=== PATIENT | female | born 2000 | race Caucasian/White ===

== ENCOUNTER 2024-06-28 08:52 | Outpatient (CLI) | payer OTHER, SELFPAY | END 2024-06-28 08:53 | disposition home or self-care (01) | PROVIDERS: PCP Family Medicine; Referring Provider Family Medicine; Visit Provider Physician Assistant | DX: R35.0 Frequency of micturition (principal) | CPT/HCPCS: 87086 ==

== ENCOUNTER 2024-07-26 15:26 | Outpatient (CLI) | payer OTHER, SELFPAY | END 2024-07-26 15:27 | disposition home or self-care (01) | PROVIDERS: PCP Family Medicine; Visit Provider Obstetrics & Gynecology | DX: D13.4 Benign neoplasm of liver (principal); K76.0 Fatty (change of) liver, not elsewhere classified | CPT/HCPCS: 84450; 84460 ==

== ENCOUNTER 2024-10-18 07:12 | Outpatient (CLI) | payer OTHER, SELFPAY ==
--- NOTE | 2024-10-18 07:15 | CRLHL7_ITS ---
For Patients: As a result of the Century Cures Act, medical imaging exams and procedure reports are released immediately into your electronic medical record. You may view this report before your referring provider. If you have questions, please contact your health care provider. OB ULTRASOUND LUCY by US: 01/09/2025. GA: 28 w, 1 d. Single. Comparison: 08/22/2024 x 2. INDICATION: Growth (Congenital pulmonary valve stenosis). TECHNIQUE: Real time bell scale imaging of the fetus was performed.Transabdominal. CERVIX: Not visualized. POSITIONING: Vertex. AMNIOTIC FLUID: 5.8 cm. SDP (N: greater than 2 x 1 cm) PLACENTA: Technique: Transabdominal. PLACENTA POSITION: Posterior. DOPPLER: heart rate: 144 bpm. BIOMETRY: BPD: 7.6 cm. 30 w, 2 d, 94 percent. HC: 27.6 cm. 30 w, 1 d, 81 percent. AC: 26.0 cm. 30 w, 1 d, 92 percent. FL: 5.4 cm. 28 w, 4 d, 50 percent. FL/AC ratio: 20.8 percent. HC/AC ratio: 1.1. EFW: 1435 g. Weight: 3 lbs, 3 oz. age by this US: 29 w, 6 d. LUCY by this US: 12/28/2024. Percentile by LUCY: 90.1 percent. IMPRESSION: 1. Sonographic gestational age 29 weeks 6 days and sonographic due date 12/28/2024. Sonographic age 12 days ahead of the clinical age. 2. Estimated weight 90th percentile. Abdominal circumference 92nd percentile. Cesar Serrano M.D. Diagnostic Radiologist [employer] [email or web address] SEMAJ/tom JR/Dictated by: Cesar Serrano MD @ 10/18/2024 8:33:00 AM (Electronically Signed)
--- OUTSIDE RECORDS SUMMARY | 2024-10-19 00:31 | XMS_ITS | Clinical Summary ---
Author Organization [employer] [facility] [employer] [facility] Address [address] [place] [id number] Care Team Providers Care Engineer Station Mainline Name Role Phone Sandhya Aleman MD Primary Care Provi alex Allergies Active Allergy Reactions Criticality Noted Date Comments Metformin Tachycardia 07/22/2023 Skin issues, tachypnea, Medications loratadine (Claritin) 10 mg tabletIndication s:Seasonal allergic rhinitis, unspecified trigger Take 1 Tablet (10 mg) by mouth once daily. 0 3 Active Blood-Glucose Meter (Freestyle [employer])Indicat ions:PCOS (polycystic ovarian syndrome) Dispense glucose meter, test strips and lancets covered by the patient insurance. Test 2 times per day. 1 Each 4 Active lancets 28 gauge miscIndications: PCOS (polycystic ovarian syndrome) As directed. Test 2 times daily. 100 Each 11 01/29/2024 3:30 PM CDT 4 Active blood sugar diagnostic (Freestyle [employer] Test Strips) stripIndications :PCOS (polycystic ovarian syndrome) Dispense item covered by pt ins. PCOS as diagnosis. Test 2 times daily. 100 Each 11 01/29/2024 3:30 PM CDT 4 Active buPROPion 150 mg Extended-Release tabletIndication s:Depression, major, single episode, moderate (HC) Take 1 Tablet (150 mg) by mouth once daily in the morning. 90 Tablet 3 08/23/2024 1:23 PM CDT 4 Active 25/iron fum/folic/dha (-1 ORAL) Take by mouth. Active cholecalciferol (Vitamin D-3) 400 unit tabletIndication s:Vitamin D deficiency Take 2 Tablets (800 units) by mouth once daily. 60 Tablet 2 06/14/2024 3:40 PM FREIGHT ASSOCIATE 5 Active Active Problems Problem Noted Date Diagnosed Date Encounter for supervision of normal first in first trimester 05/03/2024 Hepatic adenoma 10/11/2023 Overview (10/11/2023): Seeing GI at [facility], will need close monitoring if . NAFLD (nonalcoholic fatty liver disease) 024 Overview (10/11/2023): Seeing GI at [facility]. 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 Date of SRO: 06/28/24 Estimated Date of Delivery: 01/09/25 Gest Age: 12w1d G/P: Current BMI: 33.45 Reason for referral: consult, testing/delivery recs d/t hx of congenital pulmonary valve stenosis, benign liver adenoma REFERRING PROVIDER/CLINIC LOCATION/FAX #: Igor Galdamez MD/Traci Domniguez MD approves scheduling of recommended ultrasounds/testing: Yes Please schedule the following: [x] [facility] [] Multiples: [x] Consult MOMS [x] Ultrasound: - Level 2 (including echo) - 75 minutes and - Echo w/Peds Lock Corner Machine Operator [] Lab: [x] Genetic Counseling [x] Before [] After []15 [x] 30 []45 []CVS []Amnio [] BMI > 40 [] Backpackers Manager - Language [] [place] Insurance: Location Specialty [facility] Any [facility] Clinic [] In-person [] Virtual [] Either MOMS Comments: CVOB only if ECHO is abnormal; PENITENTIARY to schedule ECHO RN: Sharri Lindsay RN Plate Glass Installer Helper: GC: MALIA GUTIERREZ/Provider: ANTWON Date: 06/28/24 Urgency: consult to follow ECHO (1-3 weeks); L2 in range []Can be sooner [] Can be split Moiz Weaver : 2000 REFERRING PROVIDER/CLINIC LOCATION/FAX #: Igor Galdamez MD/Traci Landa Primary provider approves scheduling of recommended ultrasounds/testing: Yes MPP ULTRASOUND/TESTING PATIENT [facility] CONSULT ON Support person name: Backpackers Manager: No ULTRASOUND TYPE: REASON FOR VISIT: NEXT VISIT ALERTS: NURSING VISIT ALERT: Create and link episode at day of visit. Document in Dating section. GA Final LUCY by Early Ultrasound LMP Date: Patient's last menstrual period was 03/15/2024. LUCY: 12/20/24 Early US: Date: GA: 6w1d LUCY: 01/09/25 IVF Date: PrePregnancy Weight: 204lbs Height: 5' 3.5 BMI: 35.61 PLANS & FUTURE APPOINTMENTS: ULTRASOUND/GROWTH PLAN: - Through: - Growth: Next TESTING PLAN: - Testing: Through DELIVERY PLAN: - Scheduled delivery: - Preferred delivery location: PRIMARY DIAGNOSIS: 24 y.o. Estimated Date of Delivery: 01/09/25 MATERNAL hx congenital pulmonary valve stenosis-not seen in last echo hepatic adenoma, benign non-alcoholic fatty liver disease IgA deficiency hx of PCOS If Diabetes Program patient add .DMPCOMM PREVIOUS ULTRASOUNDS: (PCP) ECHO: SPECIALISTS/CONSULTS: Include: Specialty MD Clinic Name Phone# [place] and ADDED TO PATIENT CARE TEAM GENETICS: NIPS: AFP: First screen (NT/seq/integ): if positive add .FIRSTABNORMAL Quad screen (Tetra/Triple screen): if positive add .QUADABNORMAL Amniocentesis/CVS: IVF with PGT: Carrier screening: Declines/Not Done CARE COORDINATION: [facility] Maternal Care Coordination Team: Adilene Mullins RN, Josephine Jimenez RN, Sharri Lindsay RNC, & Gerri Myles RN [phone] PERTINENT LABS: Labs reviewed? Normal? Blood type: A Rh Positive Antibody screen: Negative Non-[facility] labs need to be entered in EPIC? PERTINENT MEDS: bupropion PROCEDURES: 08/09/2021 [facility] Final Impressions 1. Mild pulmonary valve regurgitation. No pulmonary valve stenosis. Normal leaflet thickness. 2. Normal right ventricular chamber size with normal systolic function. 3. Estimated right ventricular systolic pressure 23 mmHg. 4. Normal left ventricular chamber size and wall thickness. Calculated ejection fraction 65%. 5. Normal scan of the aorta. 6. No shunt at atrial level by color flow imaging. 7. No shunt at ventricular level. 8. Normal inferior vena cava size with normal inspiratory collapse (>50%). 9. No pericardial effusion. IF FGR <10% or EFW <2000 grams: Add FGRPCOM PLAN OF CARE: Original and updated POC Immunizations Immunization Administration Dates Next Due HBEK-ALI-YXG 2000,2000 DTaP 06/10/2005, 4,05/28/2001,08/08 HIB-HepB (Comvax) 04/29/2003,05/28/2001 Hepatitis A (Peds) 12/20/2013,12/27/2012 Hepatitis B (Peds) 11/16/2001,2000 Hib Conjugate, Unspecified 2000,2000 ,2000 Human Papilloma Virus Vaccine 06/26/2013, 013,12/27/2012 Inactivated Polio Vaccine 06/10/2005,09/2003,05/28/2001,06/07,2000 Influenza A (H1N1), Inactivated 04/21/2009,03/14 Influenza, IIV3 (Age >=3 years) 01/18/20 21,03/10/2006,04/29/2003,03/18 Influenza, IIV4 03/21/2023,02/25/2022,04/09/2018 Influenza, IIV4 (=>6mos) MDV 04/01/2014 Influenza, Inactivated AIIV4 (Age 65+ Years) Preserv Free 02/11/2024 Influenza,CCIIV4 PRESERV FREE 01/07/2020 Influenza,LAIV3 Live Intrana isabel (Flumist) 02/05/2009,02/28/2007 MMR 06/10/2005,05/28/2001 Meningococcal B 12/02/2019 Meningococcal Vaccine (Menactra) 04/09/2018,08/2012 Pneumococcal conj 7-Valent (Prevnar 7) 0 04/29/2003,2000,2000,04/06 Tdap 02/17/2021,12/27/2012 Varicella Vaccine 12/31/2012,11/16/2001 Family History Medical History Relation Name Comments Diabetes type II Maternal Grandfather Diabetes type II Maternal Grandmother Diabetes type II Paternal Grandfather Diabetes type II Paternal Grandmother Asthma Sister Relation Name Status Comments Father Alive Maternal Grandfather Maternal Grandmother Mother Alive Paternal Grandfather Paternal Grandmother Sister Alive Social History Tobacco Use Types Packs/Day Years Used Date Smoking Tobacco: Never Passive Smoke Exposure: Never Smokeless Tobacco: Never Tobacco Cessation:Counseling Given: Not Answered Alcohol Use Standard Drinks/Week Comments Not Currently 0 (1 standard drink = 0.6 oz pur e alcohol) occasional PHQ-2 Answer Date Recorded PHQ-2 TOTAL SCORE 0 06/05/2024 Social Connections Answer Date Recorded Do you often feel lonely or isolated from those around you? 0 01/22/2024 Financial Resource Strain Answer Date R ecorded Difficulty of Paying Living Expenses 3 01/22/2024 Difficulty of Paying Living Expenses Not on file 01/22/2024 Food Insecurity Answer Date Recorded Do you worry your food will run out before you are able to buy more? 1 01/22/2024 Transportation Needs Answer Date Record ed Does lack of transportation keep you from medica l appointments? 1 01/22/2024 Does lack of transportation keep you from work, meetings or getting things that you need? 1 01/22/2024 Housing Stability Answer Date Recorded What is your housing situation today? 1 01/22/2024 Interpersonal Safety Answer Date Record ed Are you being hit, kicked, p ushed or yelled at (see row info)? No 07/22/2023 Interpersonal Safety Abuse 12 - 18 Not on file 07/22/2023 Interpersonal Safety Ambulatory Vulnerability No t on file 07/22/2023 Utilities Answer Date Recorded Do you have trouble paying f or utilities (for example, heat, electricity, water, phone)? 1 01/22/2024 Comments Yes Sex and Gender Information Value Date Recorded Sex Assigned at Not on file Legal Sex Female 5:43 AM FREIGHT ASSOCIATE Gender Identity Not on file Sexual Orientation Not on file Obstetrics History Para Term AB IAB SAB Ectopic Multiple Livin g Live Births 2 Date Outcome GA Total Labor Labor/2nd/3rd Weight Sex Type Anes PTL Abena A1 A5 Name Clin Current Summary Episode Dates Number of Fetuses Estimated Date of Delivery 07/03/2024 - Present (10/19/2024) Unknown Last Filed Vital Signs Vital Sign Reading Time Taken Comments Blood Pressure 120/80 06/05/2024 7:44 AM FREIGHT ASSOCIATE Pulse 84 06/05/2024 7:44 AM FREIGHT ASSOCIATE Temperature 37.9 C (100.3 F) 07/22/2023 6:14 PM CDT Respiratory Rate 18 07/22/2023 6:29 PM CDT Oxygen Saturation 99% 03/12/2024 3:44 PM FREIGHT ASSOCIATE Inhaled Oxygen Concentration - - Weight 91.2 kg (201 lb) 06/05/2024 7:44 AM FREIGHT ASSOCIATE Height 165.1 cm (5' 5) 06/05/2024 7:44 AM FREIGHT ASSOCIATE Body Mass Index 33.45 06/05/2024 7:44 AM FREIGHT ASSOCIATE Plan of Treatment Upcoming Encounters Date Type Department Care Team (Late st Contact Info) Description 11/18/[address] [facility] [address] [facility] [place] [address] Igor Galdamez MD [address] [place] [address] Health Maintenance Due Date Last Done Comments COVID-19 vaccine series (#1) 02/06/2005 Pneumococcal series for age 6-49 (1 of 2 - PCV) 02/06/2019 04/29/2003, 2000, 2000, Additional history exists Pap test for age 21-65 09/07/2024 (Verified in Care Everywhere or Patient Record) BMI (ht and wt on same day) for age 18+ 06/05/2025 06/05/2024, 04/26/2024, 01/23/2024, Additional history exists Chlamydia for age 16-24 06/05/2025 06/05/2024 Depression screening for age 12+ 06/06/2025 06/06/2024, 06/05/2024, 04/30/2024, Additional history exists Tetanus booster 02/17/2031 02/17/2021, 12/27/2012 RSV vaccine for adults or (1 - 1-dose 75+ series) 02/06/2075 Hepatitis B series for 19+ Completed 04/29, 11/16/2001, 05/28/2001, Additional history exists HPV series for age 9-26 Completed 06/27/19 14, 02/26/2013, 12/27/2012 Tdap Completed 02/17/2021, 12/27/2012 Influenza Vaccine Completed 02/11/2024, , 02/25/2022, Additional history exists HIV for age 15-65 Completed 06/05/2024, 08/03/2022 Hepatitis C screening for ag e 18-79 Completed 06/05/2024, 08/03/2022 Procedures Procedure Name Priority Date/Time Associated Diagnosis Comments ANTI HIV 1/2 Routine 06/05/2024 9:15 AM FREIGHT ASSOCIATE Encounter for supervision of normal first in first trimester (HC) ANTI HCV Routine 06/05/2024 9:15 AM FREIGHT ASSOCIATE Encounter for supervision of normal first in first trimester (HC) GC CHLAMYDIA TRACH PROBE Routine 06/05/2024 8:30 AM FREIGHT ASSOCIATE Encounter for supervision of normal first in first trimester (HC) from Last 3 Months or Most Recently Relevant to Health Maintenance Results * ANTI HCV (06/05/2024 9:15 AM FREIGHT ASSOCIATE) HEPATITIS C ANTIBODY NON-REACTI VE NON-REACT JURGEN [facility]ey Silver Comment: HCV antibody was non-reactive. There is no laboratory evidence of HCV infection. In most cases, no further action is required. However, if recent HCV exposure is suspected, a test for HCV RNA (test code 64540) is suggested. For additional information please refer to http://education.AnswerGo.com/faq/KWO02s4 (This link is being provided for informational/ educational purposes only.) Blood BLOOD SPECIMEN / Unknown 06/05/2024 9:15 AM FREIGHT ASSOCIATE 06/05/2024 9:15 AM FREIGHT ASSOCIATE Narrative [facility] - 06/06/2024 11:46 AM FREIGHT ASSOCIATE FASTING:NO FASTING: NO us Igor Galdamez MD SEND OUTS Final Re sult [facility] [address] [place] [address], [facility] [address] [place] [address] * ANTI HIV 1/2 (06/05/2024 9:15 AM FREIGHT ASSOCIATE) HIV AG/AB, 4TH GEN NON-REACT JURGEN NON-REACT JURGEN [facility] Jose Silver Comment: HIV-1 antigen and HIV-1/HIV-2 antibodies were not detected. There is no laboratory evidence of HIV infection. PLEASE NOTE: This information has been disclosed to you from records whose confidentiality may be protected by state law. If your state requires such protection, then the state law prohibits you from making any further disclosure of the information without the specific written consent of the person to whom it pertains, or as otherwise permitted by law. A general authorization for the release of medical or other information is NOT sufficient for this purpose. For additional information please refer to http://education.AnswerGo.com/faq/TFG064 (This link is being provided for informational/ educational purposes only.) The performance of this assay has not been clinically validated in patients less than 2 years old. Blood BLOOD SPECIMEN / Unknown 06/05/2024 9:15 AM FREIGHT ASSOCIATE 06/05/2024 9:15 AM FREIGHT ASSOCIATE Narrative [facility] - 06/06/2024 11:46 AM FREIGHT ASSOCIATE FASTING:NO FASTING: NO Igor Galdamez MD SEND OUTS Final Re sult Performing Organization Address City/[facility]/ZIP Co de Phone Number [facility] [address] [place] [address], [facility] [address] [place] [address] * GC CHLAMYDIA TRACH PROBE (06/05/2024 8:30 AM FREIGHT ASSOCIATE) CHLAMYDIA PROBE Negative 4:32 AM FREIGHT ASSOCIATE [facility] N GONORRHOEAE PROBE Negative 06/06/2024 4:32 AM FREIGHT ASSOCIATE [facility] Other VAGINAL SWAB / Unknown Non-Blood / Unknown 06/05/2024 8:30 AM FREIGHT ASSOCIATE 06/05/2024 2:02 PM FREIGHT ASSOCIATE us Igor Galdamez MD MICROBIOLOGY Final Re sult Performing Organization Address City/[facility]/ZIP Co de Phone Number [facility] [address] [place] [address], [place] from Last 3 Months or Most Recently Relevant to Health Maintenance Advance Directives * Full Code (Latest Code Status on File) Date Activated Date Inactivated Comments 05/31/2012 8:16 AM 05/31/2012 5:46 PM Care Teams Engineer Station Mainline Relationship Specialty Start Date End Date LoveSandhya salamanca MD [address] [place], [place] [address] [address] PCP - General Family Practice 11/17/22
--- OUTSIDE RECORDS SUMMARY | 2024-10-19 00:31 | XMS_ITS | Encounter Summary ---
Author Organization [facility] Address [address] [place] [address] Care Team Providers Care Barrel Repairer Name Role Phone Unavailable Primary Care Provider Unavailabl e Encounter Details Date Type Department Care Team (Late st Contact Info) Description 08/17/2024 Documentation Department of Obstetrics and Gynecology in [place], [place] [address] [place] [phone] Emil Arthur M.D. [address] [place] [address] Social History Tobacco Use Types Packs/Day Years Used Date Smoking Tobacco: Never Smokeless Tobacco: Never Alcohol Use Standard Drinks/Week Comments Not Currently 0 (1 standard drink = 0.6 oz pur e alcohol) 1/month [facility] Utilities Answer Date Recorded In the past 12 months has [facility] [employer], gas, oil, or water [employer] threatened to shut off services in your home? No 09/06/2023 Humiliation, Afraid, Rape, and Kick questionnair e Answer Date Recorded Within the last year, have y ou been afraid of your partner or ex-partner? No 08/08/2021 Within the last year, have y ou been humiliated or emotionally abused in other ways by your partner or ex-partner? No Within the last year, have y ou been kicked, hit, slapped, or otherwise physically hurt by your partner or ex-partner? No 08/08/2021 Within the last year, have y ou been raped or forced to have any kind of sexual activity by your partner or ex-partner? No 08/08/2021 Hunger Vital Sign Answer Date Recorded Within the past 12 months, y ou worried that your food would run out before you got the money to buy more. Never true 09/06/19 24 Within the past 12 months, t he food you bought just didn't last and you didn't have money to get more. Never true 09/06/2023 PRAPARE - Transportation Answer Date Re corded In the past 12 months, has l ack of transportation kept you from medical appointments or from getting medications? No 08/22 In the past 12 months, has l ack of transportation kept you from meetings, work, or from getting things needed for daily living? No 09/06/2023 Housing Stability Answer Date Recorded What is your living situation today? I have a [facility] place to live 09/06/2023 Education Answer Date Recorded What is the highest level of school you have completed or the highest degree you have received? 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 [address] [place] [address] Discharge Disposition: Home or Self Care 11/27/2024 10:00 AM CDT Comprehensive Visit Division of Pediatric Cardiology in [place], [place] [address] [place] [address] Oscar Zhong M.B.BKimberlynS. [address] [place] [phone] documented as of this encounter Visit Diagnoses Not on filedocumented in this encounter Additional Health Concerns Assessment Noted Time PHQ-9 Depression Total Score: 10 018 9:09 AM CDT documented as of this encounter
--- OUTSIDE RECORDS SUMMARY | 2024-10-19 00:31 | XMS_ITS | Clinical Summary ---
Author Organization [facility] Address [address] [place] [address] Care Team Providers Care Counting Machine Operator Name Role Phone Unavailable Primary Care Provider Unavailabl e Source Comments Patient records contain information from all sites at [facility]. For routine questions regarding patient records, call [phone] during business hours, M-F 8:00 AM - 5:00 PM Central Time. Record requests for emergency care only can be directed to [phone] at any time.[facility] Allergies Active Allergy Reactions Criticality Noted Date Comments Metformin Palpitations Medium 07/22/2023 also skin issues - Medications * This document contains information received from the source organization and may not represent a complete record from that organization. FreeStyle Lite Meter kit USE TO MONITOR BLOOD GLUCOSE 07/03/2023 Active freestyle 28 gauge lancets 07/07/2023 Activ e Freestyle InsuLinx Test Strips Dispense item covered by pt ins. PCOS as diagnosis. Test 2 times daily. 07/04/2023 Active buPROPion XL (WELLBUTRIN XL) 150 mg 24 hr tablet Take 150 mg by mouth daily. 09/15/2023 Active Zepbound 5 mg/0.5 mL injection pen Inject 5 mg under the skin over 168 hr. 12/26/2023 Active Active Problems Patient Care Coordination No te Formatting of this note migh t be different from the original. MFM consult with Dr. 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 H/o liver stenosis. OB care in [place]. Problem Noted Date Diagnosed Date Obesity Body Mass Index 30-39.9 Adult 03/18/2024 Preventive Gynecological Exam 09/07/2021 Overview (09/07/2021): Pap smear: 09/07/2021 obtained and pending. Gonorrhea/Chlamydia Screen: Negative in 2019. Declines today. Mammogram: Start at age 40. Lipid panel: 09/07/2021 obtained and pending. Diabetic screenin09/07/2021 obtained and pending. Colon screening: Begin at age 45. DEXA Scan: Begin at age 65. HPV Vaccine: 4vHPV: 12/27/2012, 02/26/2013 and 06/26/2013. Tdap Vaccine: 12/27/2012. Due 2022. Influenza Vaccine: 01/17/2021. COVID-19 Vaccine: Discussed and declined. - Discussed the importance of healthy diet and exercise for overall well-being. - Recommend at least 30 minutes of aerobic exercise most days of the week. - Recommend 1200 mg of calcium daily. Assessment & Plan (09/07/2021 3:36 PM CDT): Discussed exam findings with patient. I will plan to send her a portal message with Pap smear, ultrasound and lab results. Recommend she return in 1 year for her annual preventative health exam or sooner if she has any concerns or problems. Amenorrhea 09/07/2021 Overview (09/10/2021): Labs and pelvic ultrasound all came back normal. I recommend 10 day course of Provera to initiate withdrawal bleed. Patient does desire at this point in time. She will send me a portal message with an update after completing medication. Eczema 09/07/2021 Stenosis Pulmonary Valve Congenital 07/16/2004 Overview (09/07/2021): Follows with cardiology. Recent visit was reassuring. Recommended f/u in 5 years. Estimated Date of Delivery Comme nts Yes 01/09/2025 Based on Ultraso und Resolved Problems Problem Noted Date Diagnosed Date Resolved Date Constipation 04/09/2018 09/07/2021 Overweight Pediatric Body Ma ss Index 85-94th Percentile Age 2 Or Older 12/02/2014 09/07/2021 Hypertrophy Tonsil With Adenoid 04/13/2012 09/07/2021 Encounters Date Type Department Care Team Description 08/22/2024 4:00 PM CDT Office Visit Division of Pediatric Cardiology in [address] [phone] Andrew Fox M.D. Qureshi, M. Yasir, M.B.B.S. Stenosis Pulmonary Valve Congenital (HCC) (Primary Dx); Encounter For Screening For Congenital Cardiac Abnormalities (HCC) 08/22/2024 1:31 PM CDT - 08/22/2024 11:59 PM CDT Hospital Encounter Department of Cardiovascular Diseases in [place], [place] [address] [place] [phone] Andrew Fox M.D. Stenosis Pulmonary Valve Acquired Discharge Disposition: Home or Self Care 08/22/2024 12:40 PM CDT - 08/22/2024 1:30 PM CDT Hospital Encounter Department of Cardiovascular Diseases in [place], [place] [address] [place] [phone] Andrew Fox M.D. Stenosis Pulmonary Valve Acquired Discharge Disposition: Home or Self Care 08/22/2024 11:00 AM CDT Routine Department of Obstetrics and Gynecology in [address] [phone] Emil Arthur M.D. Supervision Of Other High Risk Pregnancies Second Trimester (HCC) (Primary Dx); Stenosis Pulmonary Valve Acquired 08/22/2024 9:32 AM CDT - 08/22/2024 12:39 PM CDT Hospital Encounter Department of Obstetrics and Gynecology in [place], [place] [address] [place] [phone] Yumi Car M.D., Ph.D. Supervision Of Other High Risk Pregnancies Second Trimester (HCC) Discharge Disposition: Home or Self Care 08/17/2024 Documentation Department of Obstetrics and Gynecology in [place], [place] [address] [place] [phone] Emil Arthur M.D. 08/06/2024 Clinical Communication Division of Gastroenterology in [address] [phone] Dayday Sifuentes M.D. 08/05/2024 1:00 PM CDT Nurse Only Department of Obstetrics and Gynecology in [place], [place] [address] [place] [phone] Nettie Bustamante R.N. 08/01/2024 Clinical Communication Department of Obstetrics and Gynecology in [place], [place] [address] [place] [address] Prescheduling, Provider Triage from Last 3 Months Immunizations Immunization Administration Dates Next Due 4vHPV (discontinued) 06/26/2013,02/26/2013,12/27 DTaP (Infanrix, Tripedia) 06/10/2005,09/2003,05/28/2001,2000,2000,2000 DTaP-IPV/Hib (Pentacel) 2000,2000 HepA Pediatric/Adolescent 12/20/2013,12/27/2012 HepB, Unspecified 11/16/2001,2000 Hib, Unspecified 2000,2000, 0 Hib-HepB 04/29/2003,05/28/2001 IPV 06/10/2005, 4,05/28/2001,2000,2000 Influenza Split 03/10/2006,04/29/2003,03/18/2003 Influenza, Injectable, Mdck, Preservative Free, Quadrivalent 01/07/2020 Influenza, Seasonal, Injectable 01/18/20 21,03/10/2006,04/29/2003,2002 Influenza, Unspecified 01/07/2020 MCV4 (Menactra)(Discontinued) 04/09/2018 MMR 06/10/2005,05/28/2001 MPSV4 12/27/2012 MenB (BEXSERO) 12/02/2019 PCV7 (discontinued) 04/29/2003, 1,2000,1999 PPSV23 04/29/2003,2000,2000 Tdap 12/27/2012 JONNIE 12/31/2012,11/16/2001 influenza trivalent LAIV (Na isabel) (2 years through 49 years) 02/28/2007 influenza vaccine quad (FLUZONE/FLUARIX) (6 months and older)(PF) 04/09/2018 Family History Medical History Relation Name Comments No Known Problems Brother Constipation Father Constipation Grandfather Diabetes Maternal Grandfather Diabetes Maternal Grandmother No Known Problems Mother Diabetes Paternal Grandfather Diabetes Paternal Grandmother Asthma Sister Eczema Sister Relation Name Status Comments Brother Alive Father Alive Grandfather Maternal Grandfather Maternal Grandmother Mother Alive Paternal Grandfather Paternal Grandmother Sister Alive Social History Tobacco Use Types Packs/Day Years Used Date Smoking Tobacco: Never Smokeless Tobacco: Never Alcohol Use Standard Drinks/Week Comments Not Currently 0 (1 standard drink = 0.6 oz pur e alcohol) 1/month [facility] Utilities Answer Date Recorded In the past 12 months has e [employer], gas, oil, or water [employer] threatened to shut off services in your [...] your living situation today? 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 on file Not on ankit e Not on file Last Filed Vital Signs Vital Sign Reading Time Taken Comments Blood Pressure 113/74 08/22/2024 11:01 AM CDT Pulse 75 08/22/2024 11:01 AM CDT Temperature 36.6 C (97.9 F) 02/13/2020 8:04 AM CDT Respiratory Rate 12 07/20/2018 10:43 AM CDT Oxygen Saturation 100% 08/22/2024 11:01 AM CDT Inhaled Oxygen Concentration - - Weight 93.9 kg (207 lb 0.2 oz) 08/22/2024 11:01 AM CDT Height 159 cm (5' 2.6) 03/20/2024 1:08 PM AMBULANCE DISPATCHER Body Mass Index 37.14 03/20/2024 1:08 PM AMBULANCE DISPATCHER Plan of Treatment Upcoming Encounters Date Type Department Care Team (Latest Contact Info) Description 11/27/2024 8:50 AM CDT Appointment Department of Cardiovascular Diseases in [place], [place] [address] [place] [phone] Kellie Donnelly M.B.B.S. [address] [place] [phone] Discharge Disposition: Home or Self Care 11/27/2024 10:00 AM CDT Comprehensive Visit Division of Pediatric Cardiology in [place], [place] [address] [place] [phone] Oscar Zhong M.B.B.S. [address] [place] [phone] Health Maintenance Due Date Last Done Comments HIV Screening 2000 Hepatitis C Screening 2000 COVID-19 Vaccine (#1) 02/06/2005 Chlamydia and Gonorrhea Screening 02/12/2021 02/13/2020 Depression Screening (Annual PHQ-2) 04/24/2024 Cervical/Vaginal Cancer Screening 09/07/2024 09/07/2021 Tdap vaccine - (27-36 weeks) (1 - Tdap) 10/10/2024 02/17/2021, 12/27/2012, 06/10/2005, Additional history exists DTaP,Tdap,and Td Vaccines (8 - Td or Tdap) 02/17/2031 02/17/2021, 12/27/2012, 06/10/2005, Additional history exists Hepatitis B Vaccines Completed 04/29/2003, 11/16/2001, 05/28/2001, Additional history exists Pneumococcal vaccine (0-49 years) Aged Out 04/29/2003, 04/29/2003, 2000, Additional history exists No longer eligible based on patient's age to complete this topic IPV Vaccines Completed 06/10/2005, 09/2003, 05/28/2001, Additional history exists Varicella Vaccines Completed 12/31/2012, 11/16/2001 HPV Vaccines Completed 06/26/2013, 08/2012, 12/27/2012 Influenza Vaccine Completed 02/11/2024, , 02/25/2022, Additional history exists Hepatitis B Screening Discontinued 06/05/2024 RSV vaccine - (32-36 weeks) or 60+ years (No Doses Required) Completed Procedures Procedure Name Priority Date/Time Associated Diagnosis Comments (TTE) 2D ECHO DOPPLER COLOR Routine 08/22/2024 3:43 PM CDT Stenosis Pulmonary Valve Acquired WEIR ECHO 2D WITH COLOR AND DOPPLER Routine 08/22/2024 2:30 PM CDT Stenosis Pulmonary Valve Acquired US OB ADVANCED LEVEL WEIR RAD - Routine (most inpatients and all outpatients) 08/22/2024 11:02 AM CDT Supervision Of Other High Risk Pregnancies Second Trimester (HCC) THINPREP SCREEN HPV REFLEX Routine 09/07/2021 4:28 PM CDT Preventive Gynecological Exam CHLAMYDIA/GONORR HOEAE AMPLIFIED RNA Routine 02/13/2020 9:07 AM CDT Screening For Venereal Disease from Last 3 Months or Most Recently Relevant to Health Maintenance Results * (TTE) 2D ECHO DOPPLER COLOR (08/22/2024 3:43 PM CDT) Ejection Fraction 63 MC CV EIMS Sinus of Valsalva 24 MC CV EIMS Sinotubular Junction 20 MC CV EIMS Mid-Ascending Aorta 27 MC CV EIMS LV Mass Index 54 MC CV EIMS LV End-Diastolic Diameter 43 MC CV EIMS LV End-Systolic Diameter 26 MC CV EIMS MV E Velocity 1 MC CV EIMS MV A Velocity 0.4 MC CV EIMS MV E/A 2.5 MC CV EIMS MV e' Velocity Medial 0.12 MC CV EIMS MV E/e' Medial 8.3 MC CV EIMS Left ventricular stroke volume index 40 MC CV EIMS Cardiac Output 5.81 MC CV EIMS Cardiac Index 2.98 MC CV EIMS LV Interventricular Septal Wall Thickness 8 MC CV EIMS LV Posterior Wall Thickness 8 MC CV EIMS RV 4-Chamber Basal Diameter 34 MC CV EIMS RV 4-Chamber Mid Diameter 30 MC CV EIMS RV 4-Chamber Length 76 MC CV EIMS TAPSE 29 MC CV EIMS Estimated RA Pressure (Echo RAP) 5 MC CV EIMS Pulmonary Artery Diastolic Pressure (with Echo RAP) 8 MC CV EIMS Aortic valve area 2.91 MC CV EIMS LA Volume Index 23 MC CV EIMS Aortic Valve Systolic Peak Velocity 1.5 MC CV EIMS Anatomical Region Laterality Modality Other 08/22/2024 1:32 PM CDT Impressions 08/22/2024 3:46 PM CDT LEFT VENTRICLE:Normal left ventricular wall thickness. Normal left ventricular diastolic function. RIGHT VENTRICLE:Unable to detect peak tricuspid regurgitation velocity for pulmonary artery systolic pressure calculation. ATRIA:Normal left atrial size. Left atrial volume index 23 ml/m2. Normal right atrial size. CARDIAC VALVES:Normal aortic valve. No aortic valve regurgitation. Normal mitral valve. No mitral valve regurgitation. Mild pulmonary valve regurgitation. No pulmonary valve stenosis. Normal tricuspid valve. Trivial tricuspid valve regurgitation. OTHER ECHO FINDINGS:Normal pulmonary arteries. Normal proximal coronary origins. Normal abdominal aorta Doppler flow pattern. No shunt at atrial level by color flow imaging. No shunt at ventricular level. Normal scan of the aorta. For the complete report, see the Order-Level Documents. Narrative 08/22/2024 3:46 PM CDT For the complete report, see the Order-Level Documents. Hemodynamics Heart Rate: 73 BPM Blood Pressure: 113 / 74 mmHg ECG: Sinus rhythm Final Impressions 1. Mild pulmonary valve regurgitation. No pulmonary valve stenosis. Normal leaflet thickness. 2. Normal right ventricular chamber size and systolic function. 3. Unable to detect peak tricuspid regurgitation velocity for pulmonary artery systolic pressure calculation. 4. Normal left ventricular chamber size and systolic function. Calculated ejection fraction 63%. 5. Normal inferior vena cava size with normal inspiratory collapse (>50%). 6. No pericardial effusion. Procedure Note Preston Rene M.D. - 08/22/2024 For the complete report, see the Order-Level Documents. Hemodynamics Heart Rate: 73 BPM Blood Pressure: 113 / 74 mmHg ECG: Sinus rhythm Final Impressions 1. Mild pulmonary valve regurgitation. No pulmonary valve stenosis.Normal leaflet thickness. 2. Normal right ventricular chamber size and systolic function. 3. Unable to detect peak tricuspid regurgitation velocity for pulmonaryartery systolic pressure calculation. 4. Normal left ventricular chamber size and systolic function. Calculatedejection fraction 63%. 5. Normal inferior vena cava size with normal inspiratory collapse(>50%). 6. No pericardial effusion. Findings LEFT VENTRICLE:Normal left ventricular wall thickness. Normal leftventricular diastolic function. RIGHT VENTRICLE:Unable to detect peak tricuspid regurgitation velocity forpulmonary artery systolic pressure calculation. ATRIA:Normal left atrial size. Left atrial volume index 23 ml/m2. Normalright atrial size. CARDIAC VALVES:Normal aortic valve. No aortic valve regurgitation. Normalmitral valve. No mitral valve regurgitation. Mild pulmonary valveregurgitation. No pulmonary valve stenosis. Normal tricuspid valve.Trivial tricuspid valve regurgitation. OTHER ECHO FINDINGS:Normal pulmonary arteries. Normal proximal coronaryorigins. Normal abdominal aorta Doppler flow pattern. No shunt at atriallevel by color flow imaging. No shunt at ventricular level. Normal scan ofthe aorta. For the complete report, see the Order-Level Documents. Andrew Fox M.D. 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 Normal great artery relationships. For the complete report, see the Order-Level Documents. Narrative 08/22/2024 5:06 PM CDT For the complete report, see the Order-Level Documents. Final Impressions 1. echocardiogram performed due to family history of congenital heart disease. 2. Estimated date of delivery 01/09/2025. Gestational age 20 weeks. 3. Weir . 4. lie: variable. 5. Borderline dilated main pulmonary artery (5 mm, Z-score +2.1). No pulmonary valve stenosis or regurgitation noted. Otherwise, normal cardiac anatomy and dimensions. 6. Normal biventricular function. 7. Normal Doppler velocities. 8. Normal aortic arch. 9. Normal ductal arch. 10. Normal patency of the foramen ovale. 11. echocardiogram reveals normal sinus rhythm at a heart rate of 167 contr/min. 12. Normal umbilical cord Doppler velocities and profile. Three vessel cord. 13. No pericardial effusion. No hydrops. Procedure Note Kellie Donnelly M.B.B.S. - 08/22/2024 For the complete report, see the Order-Level Documents. Final Impressions 1. echocardiogram performed due to family history of congenitalheart disease. 2. Estimated date of delivery 01/09/2025. Gestational age 20 weeks. 3. Weir . 4. lie: variable. 5. Borderline dilated main pulmonary artery (5 mm, Z-score +2.1). Nopulmonary valve stenosis or regurgitation noted. Otherwise, normal cardiacanatomy and dimensions. 6. Normal biventricular function. 7. Normal Doppler velocities. 8. Normal aortic arch. 9. Normal ductal arch. 10. Normal patency of the foramen ovale. 11. echocardiogram reveals normal sinus rhythm at a heart rate of167 contr/min. 12. Normal umbilical cord Doppler velocities and profile. Three vesselcord. 13. No pericardial effusion. No hydrops. Findings echocardiogram reveals situs solitus of the atria and viscera withlevocardia. Normal great artery relationships. For the complete report, see the Order-Level Documents. us Andrew Fox M.D. CV ECHO PROCEDURES Final Result * US OB Advanced Level Weir (08/22/2024 11:02 AM CDT) Anatomical Region Laterality Modality Body, Ultrasound OB RST LOS, Ultrasound ARZ LOS N/A Ultrasound 08/22/2024 9:51 AM CDT Narrative 08/22/2024 11:16 AM CDT Exam Type ========= OB Detailed Anatomy Indication ======== BMI History ====== OB History 1 Method ====== Transabdominal ultrasound examination ========= Weir Dating ====== Date Details Gest. age LUCY Stated LUCY 20 w + 0 d 01/09/2025 U/S 08/22/2024 based upon AC, BPD, Femur 20 w + 6 d 01/03/2025 Assigned dating based on stated LUCY, selected on 08/22/2024 20 w + 0 d 01/09/2025 General Evaluation Cardiac activity present. FHR 153 bpm. Presentation: Breech Placenta: Placental site: posterior, with no placenta previa or vasa previa Umbilical cord: Cord vessels: 3 vessel cord. Insertion site: normal insertion Amniotic fluid: Amount of AF: subjectively normal Biometry BPD 47.3 mm 20w 2d 63% HC 180.0 mm +0.3SD Cerebellum tr 20.3 mm 50% Nuchal fold 5.1 mm APAD 53.4 mm 22w 2d TAD 53.2 mm 22w 0d AC 167.5 mm 21w 5d 92% Femur 33.9 mm 20w 5d 66% Humerus 32.0 mm 20w 5d 79% HC / AC 1.07 5% Weight Calculation: EFW 402 g 95% Hadlock EFW (lb,oz) 0 lb 14 oz EFW by Hadlock ([id number]-FL) Head / Face / Neck Biometry: Rv Body Mechanic 6.4 mm CM 3.7 mm 12% Inner IOD 13.7 mm Outer IOD 31.3 mm 20w 1d 29% Extremities / Bony Struc Biometry: Radius 30.2 mm 21w 4d 74% Ulna 32.7 mm 22w 4d 94% FL / BPD 0.72 66% FL / HC 0.19 65% FL / AC 0.20 12% Tibia 32.6 mm 22w 0d 97% Fibula 30.1 mm 20w 5d 67% Anatomy The following structures appear normal: Head / Neck Cranium. Lateral ventricles. Choroid plexus. Midline falx. Cavum septi pellucidi. Cerebellum. Cisterna magna. Vermis. Neck. Nuchal fold. Face Lips. Profile. Nose. Coronal face. Nasal bone. Palate. Tongue. Maxilla. Mandible. Orbits. Lens. Heart / Thorax 4-chamber view: Pulmonary veins: normal. RVOT view. LVOT view. 3-vessel view. 2-mlndqu-hgqdnjx view. Situs. Aortic arch view. Ductal arch view. Interventricular septum. Diaphragm. Abdomen Abdom. wall. Cord insertion. Stomach. Kidneys. Bladder. Right renal artery. Left renal artery. Genitals. Spine Cervical spine. Thoracic spine. Lumbar spine. Sacral spine. Extremities / Skeleton Arms. Hands. Legs. Feet. The following structures could not be visualized: Heart / Thorax Bicaval view. Maternal Structures Cervix Normal Normal appearing adnexa Impression ========= Weir intrauterine . Breech presentation. No structural abnormalities or soft markers of aneuploidy are identified, however, bicaval views not obtained today. composite biometry consistent with assigned gestational age (EFW 402 g (0 lb14 oz) 95%, AC 92%). Amniotic fluid volume subjectively normal. Placenta posterior, with no placenta previa or vasa previa. No cervical shortening on transabdominal imaging. Recommendations Consider obtaining bicaval view at time of next ultrasound. Procedure Note Madison Higuera M.D. - 08/22/2024 Exam Type ========= OB Detailed Anatomy Indication ======== BMI History ====== OB History 1 Method ====== Transabdominal ultrasound examination ========= Weir Dating ====== Date DetailsGest. age LUCY Stated LUCY 20 w + 0 d 01/09/2025 U/S 08/22/2024 based upon AC, BPD, Femur 20w + 6 d 01/03/2025 Assigned dating based on stated LUCY, selected on w + 0 d 01/09/2025 General Evaluation Cardiac activity present. FHR 153 bpm. Presentation: Breech Placenta: Placental site: posterior, with no placenta previa or vasaprevia Umbilical cord: Cord vessels: 3 vessel cord. Insertion site: normalinsertion Amniotic fluid: Amount of AF: subjectively normal Biometry BPD 47.3 mm 20w 2d 63% HC 180.0 mm +0.3SD Cerebellum tr 20.3 mm 50% Nuchal fold 5.1 mm APAD 53.4 mm 22w 2d TAD 53.2 mm 22w 0d AC 167.5 mm 21w 5d 92% Femur 33.9 mm 20w 5d 66% Humerus 32.0 mm 20w 5d 79% HC / AC 1.07 5% Weight Calculation: EFW 402 g 95% Hadlock EFW (lb,oz) 0 lb 14 oz EFW by Hadlock ([id number]) Head / Face / Neck Biometry: Rv Body Mechanic 6.4 mm CM 3.7 mm 12% Inner IOD 13.7 mm Outer IOD 31.3 mm 20w 1d 29% Extremities / Bony Struc Biometry: Radius 30.2 mm 21w 4d 74% Ulna 32.7 mm 22w 4d 94% FL / BPD 0.72 66% FL / HC 0.19 65% FL / AC 0.20 12% Tibia 32.6 mm 22w 0d 97% Fibula 30.1 mm 20w 5d 67% Anatomy The following structures appear normal: Head / Neck Cranium. Lateral ventricles. Choroid plexus. Midline falx.Cavum septi pellucidi. Cerebellum. Cisterna magna. Vermis. Neck. Nuchal fold. Face Lips. Profile. Nose. Coronal face. Nasal bone. Palate.Tongue. Maxilla. Mandible. Orbits. Lens. Heart / Thorax 4-chamber view: Pulmonary veins: normal. RVOT view. LVOTview. 3-vessel view. 2-gzcxny-vpiwtyi view. Situs. Aortic arch view.Ductal arch view. Interventricular septum. Diaphragm. Abdomen Abdom. wall. Cord insertion. Stomach. Kidneys. Bladder.Right renal artery. Left renal artery. Genitals. Spine Cervical spine. Thoracic spine. Lumbar spine. Sacralspine. Extremities / Skeleton Arms. Hands. Legs. Feet. The following structures could not be visualized: Heart / Thorax Bicaval view. Maternal Structures Cervix Normal Normal appearing adnexa Impression ========= Weir intrauterine . Breech presentation. No structural abnormalities or soft markers of aneuploidy areidentified, however, bicaval views not obtained today. composite biometry consistent with assigned gestational age (EFW 402g (0 lb14 oz) 95%, AC 92%). Amniotic fluid volume subjectively normal. Placenta posterior, with no placenta previa or vasa previa. No cervical shortening on transabdominal imaging. Recommendations Consider obtaining bicaval view at time of next ultrasound. us Yumi Car M.D., Ph.D. IMG OB US PROCEDUR ES Final Result * ThinPrep Screen HPV Reflex (09/07/2021 4:28 PM CDT) 09/13/2021 8:50 AM CDT [facility] Report electronically signed by LUCIANO Miguel(ASCP) I verify that I have examined all relevant slides/materials for the specimen(s) and rendered or confirmed the diagnosis. 09/13/2021 8:50 AM CDT [facility] Gross Description Received specimen in a ThinPrep vial. 09/13/2021 8:50 AM CDT [facility] Pap Test Source Cervical/Endocervi sara 09/13/2021 8:50 AM CDT [facility] Clinical History Well Woman 09/14/19 8:50 AM CDT [facility] Menstrual Status(LMP, PM, ) Irregular cycles 09/13/2021 8:50 AM CDT [facility] Hormone Therapy/Contracep tives None/Not known 09/13/2021 8:50 AM CDT [facility] Interpretation Cervical/Endocervi sara (ThinPrep): Satisfactory for Evaluation Negative for Intraepithelial Lesion or Malignancy 09/13/2021 8:50 AM CDT [facility] Varies (Cervix/Endocerv ix) 09/07/2021 4:28 PM CDT 09/08/2021 7:26 AM CDT us Kaylene Fox APRN, C.N.P. LAB PAP PATHDX OR DERABLES Final Result [facility] [address] [place] [address], [facility] [address] [place] [address] * Chlamydia / Gonorrhoeae Amplified RNA (02/13/2020 9:07 AM CDT) Source Swab, Vagina 02/13/2020 9:03 PM CDT [facility] Chlamydia trachomatis amplified RNA Negative Negative 02/13/2020 9:03 PM CDT [facility] Source Swab, Vagina 02/13/2020 9:03 PM CDT [facility] Neisseria gonorrhoeae amplified RNA Negative Negative 02/13/2020 9:03 PM CDT [facility] Varies (Vagina) 02/13/2020 9 :07 AM CDT 02/13/2020 2:14 PM CDT Tasha Cruz N.P. LAB MICROBIOLOGY - GENERAL ORD ERABLES Final Result [facility] [address] [place] [address], [place] [facility] [place] [address] [place] [address] from Last 3 Months or Most Recently Relevant to Health Maintenance Insurance [id number] [phone] MEDICA
--- OUTSIDE RECORDS SUMMARY | 2024-10-19 00:31 | XMS_ITS | Encounter Summary ---
Author Organization [facility] Address [address] [place] [address] Care Team Providers Care Admitting Coordinator Name Role Phone Unavailable Primary Care Provider Unavailabl e Encounter Details Date Type Department Care Team (Latest Contact Info) Description 08/06/2024 Clinical Communication Division of Gastroenterology in [place], [place] [address] [place] [address] Dayday Sifuentes M.D. [address] [place] [address] Social History Tobacco Use Types Packs/Day Years Used Date Smoking Tobacco: Never Smokeless Tobacco: Never Alcohol Use Standard Drinks/Week Comments Not Currently 0 (1 standard drink = 0.6 oz pur e alcohol) 1/month [facility] Utilities Answer Date Recorded In the past 12 months has [facility] [employer], gas, oil, or water [employer] threatened to shut off services in your [...] your living situation today? I have a [facility] place to live 09/06/2023 Education Answer Date [...] AM CDT Legal Sex Female 11:08 PM [employer] Gender Identity Female 07/20/2018 10:30 AM [...] CDT Appointment Department of Cardiovascular Diseases in [place], [place] [address] [place] [phone] Kellie Donnelly M.B.B.S. [address] [place] [address] Discharge Disposition: Home or Self Care 11/27/2024 10:00 AM CDT Comprehensive Visit Division of Pediatric Cardiology in [place], [place] [address] [place] [address] Oscar Zhong M.B.B.S. [address] [place] [address] documented as of this encounter Visit Diagnoses Not on filedocumented in this encounter Additional Health Concerns Assessment Noted Time PHQ-9 Depression Total Score: 10 09/15/ 018 9:09 AM CDT documented as of this encounter
== END 2024-10-18 07:13 | disposition home or self-care (01) ==
LOC: US 07:13
PROVIDERS: PCP Family Medicine; Visit Provider Obstetrics & Gynecology
DX: Q22.1 Congenital pulmonary valve stenosis (principal); O36.5930 Maternal care for other known or suspected poor fetal growth, third trimester, not applicable or unspecified; Z3A.28 28 weeks gestation of pregnancy
CPT/HCPCS: 76816; 86592

== ENCOUNTER 2024-11-15 09:10 | Outpatient (CLI) | payer OTHER, SELFPAY ==
--- NOTE | 2024-11-15 09:15 | CRLHL7_ITS ---
For Patients: As a result of the Century Cures Act, medical imaging exams and procedure reports are released immediately into your electronic medical record. You may view this report before your referring provider. If you have questions, please contact your health care provider. INDICATION: Benign neoplasm of the liver TECHNIQUE: Ultrasound abdomen limited. Sonographic images of the right upper quadrant were obtained using bell-scale, color and spectral Doppler images. COMPARISON: 02/23/2024 MRI FINDINGS: Liver: Steatosis. Mild enlargement. Focal fatty sparing near the gallbladder fossa. No masses. No intrahepatic biliary dilatation. Gallbladder: No stones or sludge. Normal wall thickness. No pericholecystic fluid. Common bile duct: 3 mm. Pancreas: Normal. Right kidney: Normal in size. Normal echotexture and cortex. No suspicious masses, stones, or hydronephrosis. Vasculature: Proximal abdominal aorta and IVC are normal. Normal flow direction in the main portal vein. IMPRESSION: 1. No sonographically visible liver mass. 2. Hepatic steatosis and mild hepatomegaly. Dictated by Raúl Foreman MD @ 11/19/2024 3:50:13 PM (Electronically Signed)
== END 2024-11-15 09:11 | disposition home or self-care (01) ==
LOC: US 09:10
PROVIDERS: PCP Family Medicine; Visit Provider Obstetrics & Gynecology
DX: D13.4 Benign neoplasm of liver (principal); K76.0 Fatty (change of) liver, not elsewhere classified; R16.0 Hepatomegaly, not elsewhere classified; O26.893 Other specified pregnancy related conditions, third trimester; Q22.1 Congenital pulmonary valve stenosis; Z3A.33 33 weeks gestation of pregnancy
CPT/HCPCS: 76705; 76816

== ENCOUNTER 2024-11-15 09:42 | Outpatient (CLI) | payer OTHER, SELFPAY ==
--- NOTE | 2024-11-15 12:15 | CRLHL7_ITS ---
For Patients: As a result of the Century Cures Act, medical imaging exams and procedure reports are released immediately into your electronic medical record. You may view this report before your referring provider. If you have questions, please contact your health care provider. OB ULTRASOUND FOLLOW-UP, 11/15/2024 CLINICAL HISTORY: Congenital pulmonary valve stenosis. COMPARISON: 10/18/2024, 08/22/2024. TECHNIQUE: Real time bell scale imaging of the fetus was performed. Transabdominal imaging performed. FINDINGS: LUCY by US: 12/30/2024. GA: 32 weeks 1 day. Gestation: Single. Cervix: Not visualized. Positioning: Vertex. Amniotic Fluid: 53 cm SDP. Placenta: Technique: TA. Placenta Position: Posterior. Dopplers: Heart Rate: 144 bpm. BIOMETRY: BPD: 8.4 cm, 33 weeks 5 days. 85.5% HC: 31.1 cm, 34 weeks 6 days. 81.8% AC: 30.4 cm, 34 weeks 3 days. 95.4% FL: 6.2 cm, 32 weeks 1 day. 36.6% FL/AC Ratio: 20.39% HC/AC Ratio: 1.02. EFW: 2262 grams, 5 lb 0 oz. age by this US: 33 weeks 6 days. LUCY by this US: 12/28/2024. Percentile by LUCY: 86.7% IMPRESSION: 1. Single live intrauterine gestation at 33 weeks 6 days. LUCY 12/28/2024. 2. Estimated weight is 2262 grams which lies at the 87th percentile. Paieg Guadalupe M.D. Diagnostic/Breast Radiologist [email or web address] Transcribed: 8:45 am DW/Dictated by: Paige Guadalupe MD @ 11/20/2024 6:41:00 AM (Electronically Signed)
== END 2024-11-15 09:43 | disposition home or self-care (01) ==
LOC: US 09:43
PROVIDERS: PCP Family Medicine; Visit Provider Obstetrics & Gynecology
DX: O26.893 Other specified pregnancy related conditions, third trimester (principal); Q22.1 Congenital pulmonary valve stenosis; Z3A.33 33 weeks gestation of pregnancy
CPT/HCPCS: 76816